=== PATIENT | female | born 1980 | race Caucasian/White ===

== ENCOUNTER 2021-05-23 16:11 | Outpatient (CLI) | payer MEDICAID, SELFPAY ==
--- NOTE | 2021-05-23 16:18 | XR_ITS ---
WS: [id number] Abdomen series: PA CHEST AND 2 VIEWS OF THE ABDOMEN HISTORY: ABDOMINAL PAIN COMPARISON: None available. 6 mm high density nodule in the RIGHT lower lung field this may be calcified granuloma but needs to b e further evaluated. No pneumonia. No free air. Heart is normal size. Surgical sutures are noted at the LEFT upper abdomen and along the medial RIGHT abdomen. There are a few air-fluid levels within the small bowel. XR/XR acute abdomen series [id number] IMPRESSION: 1. Air-fluid levels in the small bowel. Early partial small bowel obstruction versus ileus. Close clinical imaging follow-up recommended. 2. Postsurgical changes in the LEFT upper abdomen and also in the RIGHT abdome n. 3. Indeterminate 6 mm nodule in the RIGHT lung. This may be a granuloma. Recom mend follow-up chest CT for further evaluation.
== END 2021-05-23 16:12 | disposition home or self-care (01) ==
PROVIDERS: Visit Provider Nurse Practitioner Family
DX: R10.9 Unspecified abdominal pain (principal); R91.1 Solitary pulmonary nodule
CPT/HCPCS: 74022

== ENCOUNTER 2021-06-11 08:21 | Outpatient (CLI) | payer MEDICAID, SELFPAY ==
--- NOTE | 2021-06-11 08:33 | CT_ITS ---
WS: [id number] CT ABDOMEN WITHOUT CONTRAST HISTORY: Transient periumbilical pain with nausea and vomiting. Prior gastric bypass. Contiguous single phase 5 mm axial imaging performed to the abdomen. Oral contrast has been provided. Coronal and sagittal reformats are submitted. All CT scans at [facility] use at least one of these dose optimization techniques: automated exposure control; mA and/or kV adjustment per patient size (includes targeted exams where dose is matched to clinical indication); or iterative reconstruct ion. CONTRAST: None DLP: 508.33 mGy-cm. COMPARISON: None available. Lower thorax: Lung bases are clear. Cardiac silhouette is top normal size. Postsurgical changes at th e GE junction and prior gastric bypass. Liver: Normal. No intrahepatic dilatation. Gallbladder: Prior cholecystectomy. No bile duct dilatation. Pancreas: Normal. Spleen: Low-attenuation mass with a maximum diameter of 12 mm in the spleen. Nonspecific. Adrenals: Normal. Right kidney: Normal. Left kidney: Normal. Aorta: Normal. GI tract: Postsurgical changes at the GE junction from prior bypass. No adjacent inflammation. No obs truction is evident. There is an additional distended loop of small bowel in the RIGHT lower quadrant with adjacent surgical sutures. Dilated suggesting this is patulous. There is no obstruction apparen t at this time. No ischemic changes. No adenopathy or free fluid. Abdominal wall: No hernia. Visualized osseous structures: Unremarkable. CT/CT abdomen wo con [id number] IMPRESSION: 1. Status post gastric bypass. 2. Dilated patulous loop of small bowel in the RIGHT lower quadrant. At this t tiara there is no obstruction. The loop is a patulous which may be postsurgical. No prior studies for comparison to evaluate for interval change. 3. No ascites. 4. Prior cholecystectomy. 5. Low-attenuation 12 mm lesion in the spleen. With no history of malignancy t his is probably benign cyst or hemangioma.
[2021-06-11] MEDS: iohexol 300 mg/mL 50 mL Btl PO (08:52)
== END 2021-06-11 08:22 | disposition home or self-care (01) ==
LOC: RAD 08:26
PROVIDERS: Visit Provider Nurse Practitioner Family
DX: R10.84 Generalized abdominal pain (principal); Z98.84 Bariatric surgery status; Z90.49 Acquired absence of other specified parts of digestive tract; D73.89 Other diseases of spleen
CPT/HCPCS: 74150

== ENCOUNTER 2023-01-01 19:35 | Emergency (ER) | payer OTHER, MEDICAID, SELFPAY ==
[2023-01-01 19:52] VITALS: BP 122/79; PULSE 99; RESP 17; TEMP 36.7; O2SAT 97; BMI 28.2
[2023-01-01 21:34] LABS: Basophils # 0.1 10^3/uL (0.0-0.1); Basophils % 0.8 %; Eosinophils # 0.3 10^3/uL (0.0-0.8); Eosinophils % 3.3 %; Lymphocytes # 2.4 10^3/uL (0.8-4.8); Mean Corpuscular HGB Conc 32.9 g/dL (30-55); Mean Corpuscular Hemoglobin 29.9 pg (27-33); Mean Corpuscular Volume 90.9 fl (85-98); Mean Platelet Volume 10.4 fL (7.4-10.4); Monocytes # 0.5 10^3/uL (0.2-0.9); Monocytes % 5.5 %; Neutrophils # 5.95 10^3/uL (1.8-7.7); Neutrophils % 64.1 %; Nucleated Red Blood Cells % 0 %; Platelet Count 253 10^3/cmm (157-399); Red Blood Count 3.41 10^6/uL (3.85-5.65); Red Cell Distribution Width 15.3 % (12.1-15.1); White Blood Count 9.28 10^3/uL (3.29-11.43)
[2023-01-01 21:48] LABS: HCG, Serum Qual Negative (Negative)
[2023-01-01 22:05] LABS: Alanine Aminotransferase 7 U/L (0-33); Alkaline Phosphatase 67 U/L (35-105); Aspartate Amino Transferase 12 U/L (0-32); Blood Urea Nitrogen 13 mg/dL (6-20); Calcium 9.2 mg/dL (8.5-10.5); Carbon Dioxide 28 mmol/L (22-29); Chloride 105 mmol/L (98-107); Globulin 2.2 g/dL (1.3-4.6); Glomerular Filtration Rate 92.2 mL/min (90-130); Glucose 96 mg/dL (65-115); Osmolality Calculated 290 mOsm/kg (285-295); Sodium 140 mmol/L (136-145); Total Bilirubin 0.2 mg/dL (0.15-1.2); Total Protein 6.2 g/dL (6.6-8.7)
--- NOTE | 2023-01-01 23:36 | ED_ITS ---
HPI - GI Bleed General: Chief complaint: GI Bleed Stated complaint: back pain, blood in stool Time Seen by Provider: 01/01/23 23:34 History of Present Illness: 42-year-old female comes in today with complaints of left lower quadrant abdominal pain radiating to the back and noticing some blood in the stool. Patient appears nontoxic. Patient appears in moderate pain. Patient has a history of renal calculi, gastric bypass surgery, gallbladder surgery. Gastric bypass was several years ago. Patient reports no fever or chills. Patient had used Tylenol and ibuprofen to help with pain. Associated symptoms: Reports abdominal pain and fever(s); Denies nausea or vomiting Review of Systems General: Reports: 10 or more systems reviewed and unremarkable except in HPI and below Const: Reports: fever(s) Resp: Denies: dyspnea GI: Reports: abdominal pain and hematochezia; Denies: nausea, vomiting, diarrhea or constipation : Reports: dysuria Musc: Reports: back pain Physical Exam Const: COMMON NORMALS: alert HENMT: COMMON NORMALS: normocephalic HEAD & SCALP: normocephalic THROAT: posterior oropharynx normal Neck/C-Spine: COMMON NORMALS: full ROM Resp: COMMON NORMALS: normal respiratory effort and clear to auscultation bilaterally AUSCULTATION: clear to auscultation bilaterally Cardio: COMMON NORMALS: regular rate and regular rhythm RATE: regular rate RHYTHM: regular rhythm GI: COMMON NORMALS: Soft to palpation PALPATION: Yes Soft to palpation and Yes Tenderness to palpation present (GI) Details: LLQ : COMMON NORMALS: Yes no CVA tenderness BLADDER/KIDNEY EXAM: Yes no CVA tenderness Back/Pelvis: COMMON NORMALS: no CVA tenderness and thoracic and lumbar spine normal to inspection Extremity: COMMON NORMALS: no pedal edema Neuro: SENSORIUM/ORIENTATION: Yes alert Skin: COMMON NORMALS: turgor normal GENERAL SKIN EXAM: turgor normal Course Vital Signs: Vital signs: Vital Signs Temperature 98.0 F 01/01/23 19:52 Pulse Rate 70 01/02/23 01:09 Respiratory Rate 18 01/02/23 01:09 Blood Pressure 134/88 01/02/23 01:09 Pulse Oximetry 100 01/02/23 01:09 Oxygen Delivery Me thod Room Air 01/02/23 01:09 MDM - GI Bleed Medical Decision Making 42-year-old female comes in today for complaints of left lower quadrant abdominal pain radiating to the back, and blood in the stool. Patient appears nontoxic. Abdomen soft with some tenderness in the left lower quadrant. Bowel sounds are present. Skin is warm and dry and turgor is normal. Vital signs are normal. Differential diagnosis includes not limited to diverticulitis, hemorrhoid, colon polyp, renal calculi, carcinoma. Hemoglobin is at 10. CMP was unremarkable. White blood cell count is 9.2. CT shows some inflammation in the efferent loop and proximal jejunum with status post gastric bypass. No signs of perforation is noted. Patient did admit to using NSAIDs for pain relief. I recommended cessation of all NSAIDs and aspirin containing products. We will put patient on pantoprazole 40 mg twice a day and have her follow-up with surgeon or cement block maker for further evaluation with endoscopy. Patient reported understanding of care plan and need for follow-up or return to the ER. Lab Data 01/01/23 20:51 01/01/23 20:51 Radiology Impressions Abdomen/Pelvis CT 01/01/23 23:38 IMPRESSION: Status post gastric bypass with inflammation of the efferent loop/proximal jejunum. Laboratory Results WBC 9.28 10^3/uL (3.29-11.43) 01/01/23 20:51 RBC 3.41 10^6/uL (3.85-5.65) L 01/01/23 20:51 Hgb 10.20 g/dL (11.27-16.99) L 01/01/23 20:51 Hct 31.0 % (36-47) L 01/01/23 20:51 MCV 90.9 fl (85-98) 01/01/23 20:51 MCH 29.9 pg (27-33) 01/01/23 20:51 MCHC 32.9 g/dL (30-55) 01/01/23 20:51 RDW 15.3 % (12.1-15.1) H 01/01/23 20:51 Plt Count 253 10^3/cmm (157-399) 01/01/23 20:51 MPV 10.4 fL (7.4-10.4) 01/01/23 20:51 Neut % (Auto) 64.1 % 01/01/23 20:51 Lymph % (Auto) 26.0 % 01/01/23 20:51 [place] % (Auto) 5.5 % 01/01/23 20:51 Eos % (Auto) 3.3 % 01/01/23 20:51 Baso % (Auto) 0.8 % 01/01/23 20:51 Neut # (Auto) 5.95 10^3/uL (1.8-7.7) 01/01/23 20:51 Lymph # (Auto) 2.4 10^3/uL (0.8-4.8) 01/01/23 20:51 [place] # (Auto) 0.5 10^3/uL (0.2-0.9) 01/01/23 20:51 Eos # (Auto) 0.3 10^3/uL (0.0-0.8) 01/01/23 20:51 Baso # (Auto) 0.1 10^3/uL (0.0-0.1) 01/01/23 20:51 Nucleated RBC % (auto) 0 % 01/01/23 20:51 Nucleated RBCs # 0.0 /100WBC 01/01/23 20:51 Sodium 140 mmol/L (136-145) 01/01/23 20:51 Potassium 4.0 mmol/L (3.5-5.1) 01/01/23 20:51 Chloride 105 mmol/L (98-107) 01/01/23 20:51 Carbon Dioxide 28 mmol/L (22-29) 01/01/23 20:51 Anion Gap 11.0 (5-19) 01/01/23 20:51 BUN 13 mg/dL (6-20) 01/01/23 20:51 Creatinine 0.7 mg/dL (0.5-0.9) 01/01/23 20:51 GFR Calculation 92.2 mL/min (90-130) 01/01/23 20:51 Glucose 96 mg/dL (65-115) 01/01/23 20:51 Calculated Osmolality 290 mOsm/kg (285-295) 01/01/23 20:51 Calcium 9.2 mg/dL (8.5-10.5) 01/01/23 20:51 Total Bilirubin 0.2 mg/dL (0.15-1.2) 01/01/23 20:51 AST 12 U/L (0-32) 01/01/23 20:51 ALT 7 U/L (0-33) 01/01/23 20:51 Alkaline Phosphatase 67 U/L (35-105) 01/01/23 20:51 Total Protein 6.2 g/dL (6.6-8.7) L 01/01/23 20:51 Albumin 4.0 g/dL (3.5-5.2) 01/01/23 20:51 Globulin 2.2 g/dL (1.3-4.6) 01/01/23 20:51 HCG, Qual Negative (Negative) 01/01/23 20:51 Discharge Plan Discharge Patient Disposition: Home Clinical Impression: Jejunitis, Blood in stool Condition: Stable Prescriptions: New pantoprazole 40 mg tablet,delayed release (DR/EC) 40 mg PO BID 14 Days Qty: 28 0RF hydrocodone-acetaminophen 5-325 mg tablet 1 tab PO Q8H PRN (Reason: pain (scale score 7-10)) Qty: 10 0RF ondansetron 4 mg tablet,disintegrating 4 mg PO Q8H PRN (Reason: nausea and vomiting) Qty: 10 0RF Discharge Orders: Discharge ED (Routine); Ordered 01/02/23 Ordered By: Jason Caballero Discharge Diet: Advance as tolerated Discharge Activity: Increase activity as tolerated Patient Instructions: Gastrointestinal Bleeding (ED) Activity Restrictions/Additional Instructions: Do not use ibuprofen or any other NSAIDs such as aspirin, naproxen or other products as this may cause more bleeding. As this may cause more bleeding. Take pantoprazole 40 mg twice a day for the next 2 weeks. as needed for nausea. Use acetaminophen as needed for pain. Use hydrocodone for severe pain. Follow- up with primary care as needed. Case management will contact you regarding follow-up appointment with surgeon for endoscopy procedure. Coding Level of Care Code ED [employer] for Joseline Martinez
--- NOTE | 2023-01-01 23:38 | CTR_ITS ---
PROCEDURE INFORMATION: Exam: CT Abdomen And Pelvis With Contrast Exam date and time: 01/02/2023 12:16 AM Age: 42 years old Clinical indication: Abdominal pain; Localized; Left lower quadrant (llq); Prior surgery; Surgery date: 6+ months; Surgery type: Gastric bypass. Gb. Csection x3; Patient HX: Llq pain with tarry stools. ; Additional info: Llq pain, blood in stool TECHNIQUE: Imaging protocol: Computed tomography of the abdomen and pelvis with contrast. Radiation optimization: All CT scans at this facility use at least one of these dose optimization techniques: automated exposure control; mA and/or kV adjustment per patient size (includes targeted exams where dose is matched to clinical indication); or iterative reconstruction. Contrast material: OMNI 350; Contrast volume: 100 ml; Contrast route: INTRAVENOUS (IV); REPORTING DATA: Count of CT and Cardiac NM exams in prior 12 months: This patient has received 0 known CTs and 0 known cardiac nuclear medicine studies in the 12 months prior to the current study. COMPARISON: CT abdomen con [id number] 06/11/2021 9:20 AM RADIATION DOSE METRICS: Total DLP (mGy-cm): 705.39 FINDINGS: Lungs: Minimal bilateral dependent atelectasis noted. No consolidation. Liver: Normal. No mass. Gallbladder and bile ducts: The gallbladder has been surgically removed. Pancreas: Normal. No ductal dilation. Spleen: There is a 1.7 cm hypodense lesion in the spleen, likely representing cysts or hemangioma. Enlarged spleen measuring 25 cm in CC dimension. No mass identified. Adrenal glands: Normal. No mass. Kidneys and ureters: Symmetric enhancement of the kidneys. Subcentimeter foci of decreased attenuation in the left kidney are too small to characterize. No hydronephrosis or nephrolithiasis. Stomach and bowel: The patient is status post Cong-en-Y gastric bypass. Appendix: No evidence of appendicitis. Intraperitoneal space: See Lymph nodes finding. Vasculature: Unremarkable. No abdominal aortic aneurysm. Lymph nodes: There is wall thickening of the proximal jejunum/efferent loop, just distal to the gastrojejunal anastomosis, in association with mild haziness of the surrounding fat and small adjacent reactive mediastinal lymph nodes. No free air or fluid collection to suggest perforation. Mild secondary inflammatory changes along the greater curvature of the adjacent excluded gastric cavity noted. Urinary bladder: Unremarkable as visualized. Reproductive: The uterus is surgically absent. Bones/joints: Unremarkable. No acute fracture. Soft tissues: Unremarkable. CT/CT abdomen pelvis w con* [id number] IMPRESSION: Status post gastric bypass with inflammation of the efferent loop/proximal jejunum.
[2023-01-01 23:52] VITALS: RESP 18
[2023-01-01] MEDS: ondansetron 2 mg/ML SDV 2 mL 4 MG IVP (23:52)
[2023-01-01] MEDS: morphine 4 mg/mL SDV 1 mL IVP (23:52)
[2023-01-01] MEDS: pantoprazole 40 mg SDV 80 MG IVP (23:52)
[2023-01-01] MEDS: lactated ringers 1,000 ML 999 ML IV (23:52)
[2023-01-01 23:59] VITALS: BP 144/94; PULSE 77; O2SAT 97
[2023-01-02] MEDS: iohexol 350 mg/mL 500 mL Btl (per mL) IV (00:17)
[2023-01-02 00:30] VITALS: BP 138/90; PULSE 71; O2SAT 97
[2023-01-02 00:40] VITALS: BP 131/93; BP 148/97; BP 155/102; PULSE 72; PULSE 75
[2023-01-02 01:09] VITALS: BP 134/88; PULSE 70; RESP 18; O2SAT 100
[2023-01-02 01:28] VITALS: BP 134/88; PULSE 78; RESP 18; O2SAT 100
--- NOTE | 2023-01-02 10:41 | DCPLANNER ---
Addendum entered by Cathie Sánchez 01/10/23 11:03: Patient did attend appointment scheduled with general surgery Addendum entered by Cathie Sánchez 01/03/23 12:36: Patient has a follow up appointment scheduled for Saturday, January 07, 2023 at 9:[address] Mulligan at general surgery. Original Note: manager lvn had message to schedule a follow up appointment for patient with general surgery. manager lvn sent patients information to the front office staff at general surgery. Patients information will be printed and reviewed. Clinic will call patient with appointment information.
--- NOTE | 2023-01-03 12:33 | DCPLANNER ---
manager flight called patient due to no primary care physician - no answer at this time.
--- NOTE | 2023-01-15 11:43 | DCPLANNER ---
manager pacu called patient due to no primary care physician - unable to speak with patient at this time, a voicemail was left for patient to return case loader operator phone call.
== END 2023-01-02 01:22 | disposition home or self-care (01) ==
PROVIDERS: Emergency Provider Nurse Practitioner Family
DX: K52.9 Noninfective gastroenteritis and colitis, unspecified (principal); K92.1 Melena; Z98.84 Bariatric surgery status
CPT/HCPCS: 36415; 74177; 80053; 84703; 85025; 96361; 96374; 96375; 99285; C9113; J2270; J2405; J7120; Q9967

== ENCOUNTER 2023-02-20 09:20 | Day surgery (SDC) | payer OTHER, MEDICAID, SELFPAY ==
[2023-02-19 10:11] VITALS: BMI 43.5
[2023-02-20] VITALS (9 sets, daily range): BP systolic 98–126; BP diastolic 61–88; PULSE 63–78; RESP 15–18; TEMP 36.1–36.6; O2SAT 95–100
[2023-02-20] MEDS: sodium chloride 0.9% 1,000 ML 30 ML IV (09:51)
[2023-02-20] MEDS: HYDROmorphone 1 mg/mL INJ 1 mL 0.5 MG IVP ×2 (10:32→13:08)
--- NOTE | 2023-02-20 10:39 | ANES.PREANE2 ---
Pre-Anesthetic Assessment Height/Weight: Height 1.68 m Weight 122.47 kg Temp Pulse Resp BP Pulse Ox O2 Del Method 98 F 72 18 122/67 100 Room Air 02/20/23 09:41 02/20/23 09:41 02/20/23 09:41 02/20/23 09:41 02/20/23 09:41 02/20/23 09:41 Operation Date: 02/20/23 10:45 Proposed Procedures p 58617 lap incisional hernia repair with mesh K43.2(Not Applicable) - Gerald Mulligan DO Familial anesthetic complications: none Was Beta Gladys taken within 24 hours: N/A Was Clonidine taken within 24 hours: N/A Last intake: Intake Last Liquid Date 02/19/23 Last Liquid Time 21:00 Last Solid Date 02/19/23 Last Solid Time 20:00 Social Tobacco and No alcohol Exam alert, oriented x 3 and regular rate & rhythm Airway Submandibular: within normal limits Cervical ROM: within normal limits Mallampati: Class II Dentition: full Pulmonary Chronic Obstructive Pulmonary Disease GI Gastroesophageal Reflux Disease Metabolic Morbid Obesity Anesthetic Plan ASA status: 3 Anesthesia: General Medications/Allergies Home Medications Medication Instructions Recorded Confirmed Last Taken Type hydrocodone 5 mg-acetaminophen 325 1 tab PO Q8H PRN pain (scale score 01/02/23 02/20/23 02/19/23 Rx mg tablet 7-10) #10 tabs ondansetron 4 mg disintegrating 4 mg PO Q8H PRN nausea and 01/02/23 02/20/23 02/19/23 Rx tablet vomiting #10 tabs pantoprazole 40 mg tablet,delayed 40 mg PO BID 6 weeks #84 tabs 01/07/23 02/20/23 02/19/23 Rx release Allergies Allergy/AdvReac Type Severity Reaction Status Date / Time No Known Allergies Allergy Verified 02/19/23 10:11 Current Medications Generic Name Dose Route Start Last Admin Trade Name Freq PRN Reason Stop Dose Admin Hydromorphone HCl 0.5 mg 02/20/23 09:32 02/20/23 10:32 Hydromorphone 1 Mg/Ml Inj 1 Ml IVP 0.5 mg ONCE PRN Administration For preop pain/anxiety Sodium Chloride 1,000 mls @ 30 mls/hr 02/20/23 09:45 02/20/23 09:51 Sodium Chloride 0.9% IV 02/21/23 09:44 30 mls/hr .Q24H YODIT Administration PFSH Anesthesia Surgical History (Updated 01/07/23 @ 10:31 by Gerald Mulligan DO) History of back surgery did not have History of weight loss surgery Hx laparoscopic cholecystectomy Hx of section Hx of hysterectomy Social History Smoking and tobacco/nicotine status: current some day tobacco/nicotine user Alcohol intake: never Data Anesthesia Cardiac Studies: No Data to Display
--- NOTE | 2023-02-20 11:00 | P.HP_ITS ---
Providers/Chief Complaint Chief Complaint: K43.2 History of Present Illness Jocelynn Parson is a 42 year old female Review of Systems General: Reports: 10 or more systems reviewed and unremarkable except in HPI and below Medications/Allergies Home Medications Medication Instructions Recorded Confirmed Last Taken Type hydrocodone 5 mg-acetaminophen 325 1 tab PO Q8H PRN pain (scale score 01/02/23 02/20/23 02/19/23 Rx mg tablet 7-10) #10 tabs ondansetron 4 mg disintegrating 4 mg PO Q8H PRN nausea and 01/02/23 02/20/23 02/19/23 Rx tablet vomiting #10 tabs pantoprazole 40 mg tablet,delayed 40 mg PO BID 6 weeks #84 tabs 01/07/23 02/20/23 02/19/23 Rx release Allergies Allergy/AdvReac Type Severity Reaction Status Date / Time No Known Allergies Allergy Verified 02/19/23 10:11 PFSH Acute PFSH: Surgical History History of back surgery did not have History of weight loss surgery Hx laparoscopic cholecystectomy Hx of section Hx of hysterectomy Social History Smoking and tobacco/nicotine status: current some day tobacco/nicotine user Alcohol intake: never Vitals/I&O/Wt Last Vital Signs Temp 98 F 02/20/23 09:41 Pulse 72 02/20/23 09:41 Resp 18 02/20/23 09:41 BP 122/67 02/20/23 09:41 Pulse Ox 100 02/20/23 09:41 O2 Del Method Room Air 02/20/23 09:41 Weight last 48 hrs Weight 270 lb A&P Assessment and plan (1) Incisional hernia: Plan Laparoscopic incisional hernia repair with mesh Attestations Medical Necessity Statement*: home Coding Level of Care Code Acute Code for [facility] Diagnoses Incisional hernia K43.2
[2023-02-20] MEDS: ceFAZolin 2,000 MG in sodium chloride 0.9% (plus) 50 ML 100 MG IV (12:13)
[2023-02-20] MEDS: lidocaine-epi 2% 20 mL INJ INJECTION (12:40)
--- NOTE | 2023-02-20 12:53 | P.OP_ITS ---
Operative Report Date of procedure: February 20, 2023 Pre-op diagnosis: Incisional hernia Post-op diagnosis: same Procedure done: Laparoscopic repair of incisional hernia with mesh Implants: 11 cm round Ventralight mesh Specimens removed/disposition: Hernia sac Surgeon: Gerald Mulligan DO Anesthesia: General Estimated blood loss (mL): 5 Complications: None apparent Brief History: This very pleasant 42-year-old female who presented my office with an incisional hernia from a previous laparoscopic cholecystectomy. She desired repair. The risk and benefits were explained and documented. Procedure: Patient was wheeled into the operative room and placed on the OR table in a supine position. Abdomen was inspected prepped and draped in usual sterile fashion. Time-out was performed and all present were in agreement. A 15 blade scalp was used to make a 5 millimeter incision left upper quadrant. A Veress needle was placed into the incision and intra-abdominal insufflation was brought to 15 millimeters of mercury. A 12 millimeter trocar was placed into the left lower quadrant. The energy but device was then used to cut out the hernia sac. The hernia defect measured 1 cm in greatest diameter. An 11 cm ventral light mesh was placed into the abdomen and brought up through the umbilicus using an the Magnus-Letitia. The mesh was then tacked in place in a double crown fashion. The skeleton of the mesh was removed via the left lower quadrant. The hernia sac was then removed from the abdomen via the left lower quadrant. The left lower quadrant port site was closed with an 0 Vicryl suture in a Magnus- Letitia in a [id number] fashion. Incisions were closed with 4 O Vicryl in a subcuticular interrupted fashion. Skin glue was applied. Patient tolerated the procedure well.
[2023-02-20] MEDS: HYDROcodone-acetaminophen 10-325 mg Tablet 1 TAB PO (13:52)
--- NOTE | 2023-02-20 14:11 | ANE.PACU2 ---
Inpatient post-anesthesia follow up: Airway intact: Yes Vital signs: Temperature 97.3 F Pulse Rate 78 Respiratory Rate 18 Blood Pressure 116/88 Pulse Oximetry 100 Oxygen Delivery Me thod Room Air Oxygen Flow Rate Fraction of Inspir ed Oxygen Hydration adequate: Yes Nausea and vomiting: No Pain level: 3 Mental status: Baseline
== END 2023-02-20 14:23 | disposition home or self-care (01) ==
PROVIDERS: Visit Provider Surgery
PROC: 0WQF4ZZ Repair Abdominal Wall, Percutaneous Endoscopic Approach (ICD-10-PCS; CPT 49591; principal; 2023-02-20 10:35)
DX: K43.2 Incisional hernia without obstruction or gangrene (principal); J44.9 Chronic obstructive pulmonary disease, unspecified; K21.9 Gastro-esophageal reflux disease without esophagitis; E66.01 Morbid (severe) obesity due to excess calories; Z68.41 Body mass index [BMI] 40.0-44.9, adult; F17.210 Nicotine dependence, cigarettes, uncomplicated
CPT/HCPCS: 49591; 88302; C1781; J0690; J1100; J1170; J2250; J2405; J2704; J2710; J3010; J3490; J7030

== ENCOUNTER 2023-02-28 07:35 | Day surgery (SDC) | payer OTHER, MEDICAID, SELFPAY ==
[2023-02-28 07:44] VITALS: BP 120/89; PULSE 77; RESP 16; TEMP 36.2; O2SAT 100; BMI 27.4
--- NOTE | 2023-02-28 07:53 | ANES.PREANE2 ---
Pre-Anesthetic Assessment Height/Weight: Height 1.68 m Weight 77.111 kg Temp Pulse Resp BP Pulse Ox O2 Del Method 97.2 F L 77 16 120/89 100 Room Air 02/28/23 07:44 02/28/23 07:44 02/28/23 07:44 02/28/23 07:44 02/28/23 07:44 02/28/23 07:44 Operation Date: 02/28/23 08:30 Proposed Procedures p 19406 egd [id number] colon K21.1,K21.9(Not Applicable) - Gerald Mulligan DO s Colonoscopy(Not Applicable) - Gerald Mulligan DO Familial anesthetic complications: none Was Beta Gladys taken within 24 hours: N/A Was Clonidine taken within 24 hours: N/A Last intake: Intake Last Liquid Date 02/27/23 Last Liquid Time 22:00 Last Solid Date 02/27/23 Last Solid Time 08:00 Social No alcohol and No tobacco Exam alert, oriented x 3, clear to auscultation bilaterally and regular rate & rhythm Airway Mallampati: Class II Dentition: full GI Gastroesophageal Reflux Disease Anesthetic Plan ASA status: 2 Anesthesia: MAC Risk of > 500 ml blood loss (7ml/kg in children): No Medications/Allergies Home Medications Medication Instructions Recorded Confirmed Last Taken Type ondansetron 4 mg disintegrating 4 mg PO Q8H PRN nausea and 01/02/23 02/28/23 02/26/23 Rx tablet vomiting #10 tabs pantoprazole 40 mg tablet,delayed 40 mg PO BID 6 weeks #84 tabs 01/07/23 02/28/23 02/26/23 Rx release docusate sodium 100 mg capsule 100 mg PO BID #14 caps 02/20/23 02/28/23 02/27/23 Rx (Colace) hydrocodone 10 mg-acetaminophen 1 tab PO Q6H PRN pain #20 tabs 02/20/23 02/28/23 02/28/23 06:00 Rx 325 mg tablet Allergies Allergy/AdvReac Type Severity Reaction Status Date / Time No Known Allergies Allergy Verified 02/26/23 14:12 PFSH Anesthesia Surgical History History of back surgery did not have History of weight loss surgery Hx laparoscopic cholecystectomy Hx of section Hx of hysterectomy Social History Smoking and tobacco/nicotine status: current some day tobacco/nicotine user Alcohol intake: never Data Anesthesia Cardiac Studies: No Data to Display
[2023-02-28] MEDS: sodium chloride 0.9% 1,000 ML 30 ML IV (07:55)
--- NOTE | 2023-02-28 08:53 | PM.HP ---
Providers/Chief Complaint Chief Complaint: K21.1, K21.9 History of Present Illness Jocelynn Parson is a 42 year old female Review of Systems General: Reports: 10 or more systems reviewed and unremarkable except in HPI and below Medications/Allergies Home Medications Medication Instructions Recorded Confirmed Last Taken Type ondansetron 4 mg disintegrating 4 mg PO Q8H PRN nausea and 01/02/23 02/28/23 02/26/23 Rx tablet vomiting #10 tabs pantoprazole 40 mg tablet,delayed 40 mg PO BID 6 weeks #84 tabs 01/07/23 02/28/23 02/26/23 Rx release docusate sodium 100 mg capsule 100 mg PO BID #14 caps 02/20/23 02/28/23 02/27/23 Rx (Colace) hydrocodone 10 mg-acetaminophen 1 tab PO Q6H PRN pain #20 tabs 02/20/23 02/28/23 02/28/23 06:00 Rx 325 mg tablet Allergies Allergy/AdvReac Type Severity Reaction Status Date / Time No Known Allergies Allergy Verified 02/26/23 14:12 PFSH Acute PFSH: Surgical History History of back surgery did not have History of weight loss surgery Hx laparoscopic cholecystectomy Hx of section Hx of hysterectomy Social History Smoking and tobacco/nicotine status: current some day tobacco/nicotine user Alcohol intake: never Vitals/I&O/Wt Last Vital Signs Temp 97.2 F L 02/28/23 07:44 Pulse 77 02/28/23 07:44 Resp 16 02/28/23 07:44 BP 120/89 02/28/23 07:44 Pulse Ox 100 02/28/23 07:44 O2 Del Method Room Air 02/28/23 07:44 Weight last 48 hrs Weight 170 lb A&P Assessment and plan (1) GERD (gastroesophageal reflux disease): (2) Hematochezia: Plan EGD and colonoscopy Attestations Medical Necessity Statement*: Home Coding Level of Care Code Acute Code for [facility] Diagnoses GERD (gastroesophageal reflux disease) K21.9 Hematochezia K92.1
[2023-02-28 09:16] VITALS: BP 107/65; PULSE 66; RESP 16; TEMP 36.1; O2SAT 100
[2023-02-28 09:30] VITALS: BP 121/78; PULSE 66; RESP 16; O2SAT 100
--- NOTE | 2023-02-28 09:56 | ANE.PACU2 ---
Inpatient post-anesthesia follow up: Airway intact: Yes Vital signs: Temperature 97 F Pulse Rate 66 Respiratory Rate 16 Blood Pressure 121/78 Pulse Oximetry 100 Oxygen Delivery Me thod Room Air Oxygen Flow Rate Fraction of Inspir ed Oxygen Hydration adequate: Yes Nausea and vomiting: No Pain level: 1 Mental status: Baseline
== END 2023-02-28 09:45 | disposition home or self-care (01) ==
PROVIDERS: Visit Provider Surgery
PROC: 0DJ08ZZ Inspection of Upper Intestinal Tract, Via Natural or Artificial Opening Endoscopic (ICD-10-PCS; CPT 43235; principal; 2023-02-28 08:30)
PROC: 0DJD8ZZ Inspection of Lower Intestinal Tract, Via Natural or Artificial Opening Endoscopic (ICD-10-PCS; CPT 45378; 2023-02-28 08:30)
DX: K21.9 Gastro-esophageal reflux disease without esophagitis (principal); K92.1 Melena; Z72.0 Tobacco use; K26.9 Duodenal ulcer, unspecified as acute or chronic, without hemorrhage or perforation
CPT/HCPCS: 43239; 45378; 88305; 88312; J2704; J3010; J7030

== ENCOUNTER 2024-06-28 08:54 | Outpatient (CLI) | payer OTHER, BC, MEDICAID, SELFPAY ==
--- NOTE | 2024-06-28 08:40 | MM_ITS ---
WS: [id number] VIEWS: MLO and CC views both breasts. 3D digital tomosynthesis is also included in this exam. Baseline study. Findings: There are scattered areas of fibroglandular density. No sign of suspicious mass, tumor calcification or architectural distortion. MM/MM scr BI tomosynthesis [id number] Impression: BI-RADS: 2 - Benign FOLLOW-UP: 1 Year Follow-up This mammogram was also analyzed by the Computer Aided Detection System R2 Imag e Senior Abap Developer.
== END 2024-06-28 08:55 | disposition home or self-care (01) ==
PROVIDERS: Visit Provider Nurse Practitioner Adult Health
DX: Z12.31 Encounter for screening mammogram for malignant neoplasm of breast (principal); R92.323 Mammographic fibroglandular density, bilateral breasts
CPT/HCPCS: 77063; 77067

== ENCOUNTER 2024-07-05 12:20 | Emergency (ER) | payer OTHER, BC, MEDICAID, SELFPAY ==
[2024-07-05 12:26] VITALS: BP 113/80; PULSE 98; TEMP 36.7; O2SAT 98; BMI 35.9
[2024-07-05 14:30] LABS: Basophils # 0.1 10^3/uL (0.0-0.1); Basophils % 0.9 %; Eosinophils # 0.2 10^3/uL (0.0-0.8); Eosinophils % 1.8 %; Hematocrit 37.3 % (36-47); Lymphocytes # 2.7 10^3/uL (0.8-4.8); Lymphocytes % 27.4 %; Mean Corpuscular HGB Conc 31.4 g/dL (30-55); Mean Corpuscular Hemoglobin 26.9 pg (27-33); Mean Corpuscular Volume 85.7 fl (85-98); Mean Platelet Volume 9.2 fL (7.4-10.4); Monocytes # 0.5 10^3/uL (0.2-0.9); Monocytes % 5.1 %; Neutrophils # 6.28 10^3/uL (1.8-7.7); Neutrophils % 64.5 %; Nucleated Red Blood Cells % 0 %; Platelet Count 420 10^3/cmm (157-399); Red Blood Count 4.35 10^6/uL (3.85-5.65); Red Cell Distribution Width 17.2 % (12.1-15.1); White Blood Count 9.75 10^3/uL (3.29-11.43)
[2024-07-05 14:44] LABS: Bilirubin Urine 1+ (Negative); Blood Urine Negative (Negative); Glucose Urine UA Negative (Normal); Ketones Urine Trace (Negative); Leukocyte Esterase Urine Negative (Negative); Nitrate Urine Negative (Negative); Protein Urine Trace (Negative); Urine Appearance Turbid (CLEAR); Urine Color Dark Yellow (Yellow); pH Urine 5.5 (5-7)
[2024-07-05 14:49] LABS: Alanine Aminotransferase 12 U/L (0-33); Alkaline Phosphatase 111 U/L (35-105); Anion Gap 18.1 (5-19); Aspartate Amino Transferase 21 U/L (0-32); Blood Urea Nitrogen 9 mg/dL (6-20); Calcium 9.3 mg/dL (8.5-10.5); Carbon Dioxide 22 mmol/L (22-29); Chloride 104 mmol/L (98-107); Creatinine Clr Calc Pharmacy 125.5582; Globulin 3.7 g/dL (1.3-4.6); Glomerular Filtration Rate 91.8 mL/min (90-130); Glucose 95 mg/dL (65-115); Lipase 31 U/L (13-60); Osmolality Calculated 288 mOsm/kg (285-295); Potassium 4.1 mmol/L (3.5-5.1); Sodium 140 mmol/L (136-145); Total Bilirubin 0.2 mg/dL (0.15-1.2); Total Protein 7.7 g/dL (6.6-8.7)
[2024-07-05 15:01] LABS: HCG, Serum Qual Negative (Negative)
[2024-07-05 15:01] LABS: Specific Gravity, Urine 1.033 (1.005-1.030); UA Manual Slide Review YES; UA Slide Review UA Slide Review Perf
[2024-07-05 15:02] LABS: Add Urine Microscopic? YES; Bacteria Urine TRACE /hpf; Mucus Urine 1+ /hpf; Squamous Epithelial Cell Urine 0-4 /hpf (0-5)
[2024-07-05 15:31] VITALS: BP 153/94; RESP 18; O2SAT 100
--- NOTE | 2024-07-05 15:31 | CTR_ITS ---
PROCEDURE INFORMATION: Exam: CT Abdomen And Pelvis With Contrast Exam date and time: 07/05/2024 4:04 PM Age: 43 years old Clinical indication: Abdominal pain; Generalized; Prior surgery; Surgery date: 6+ months; Surgery type: 3 csection, gb, gastric bypass, hernia, hysterectomy; Additional info: Abd pain TECHNIQUE: Imaging protocol: Computed tomography of the abdomen and pelvis with contrast. Axial, coronal and sagittal reformatted images were created and reviewed. Radiation optimization: All CT scans at this facility use at least one of these dose optimization techniques: automated exposure control; mA and/or kV adjustment per patient size (includes targeted exams where dose is matched to clinical indication); or iterative reconstruction. Contrast material: OMNI 350; Contrast volume: 100 ml; Contrast route: INTRAVENOUS (IV); COMPARISON: CT abdomen pelvis w con* [id number] 01/02/2023 12:16 AM RADIATION DOSE METRICS: Total DLP (mGy-cm): 902.13 FINDINGS: Lungs: Linear/discoid stranding and groundglass at the lung bases, likely due to atelectasis and/or scarring. Liver: Mild hepatomegaly. Gallbladder and biliary ducts: Status post cholecystectomy. No biliary ductal dilatation. Pancreas: Unremarkable. Spleen: Unchanged 1.9 cm splenic cyst. Adrenal glands: Normal. No mass. Kidneys and ureters: Subcentimeter low-density renal lesions bilaterally, measuring up to 6 mm on the left, too small to characterize. No radiodense calculi. No hydronephrosis. Stomach and bowel: Status post gastric bypass surgery. Subtle bowel wall thickening and edema at the gastrojejunostomy site. No obstruction. No pneumatosis. Appendix: Normal. Intraperitoneal space: No free fluid. No organized fluid collection. No free air. Vasculature: Minimal atherosclerotic disease. No aneurysm or dissection. Lymph nodes: Small mesenteric lymph nodes, nonspecific in appearance. No pathologically enlarged lymph nodes. Urinary bladder: Unremarkable as visualized. Reproductive: Status post hysterectomy. Bones/joints: No acute osseous abnormality. Mild degenerative changes. Soft tissues: Unremarkable. CT/CT abdomen pelvis w con* [id number] IMPRESSION: 1. Status post gastric bypass surgery with mild nonspecific inflammation at the gastrojejunostomy site. 2. Additional findings, as above. COMMENTS: Consistent with the [employer]'s Incidental Findings Committee white paper (J Am Sangeetha Radiol 2018): Any incidental renal lesion less than 1 cm or classified as too small to characterize, or any incidental cystic renal lesion characterized as simple-appearing, is likely benign. No follow-up imaging is recommended for these lesions per consensus recommendations based on imaging criteria.
--- NOTE | 2024-07-05 15:44 | ED_ITS ---
HPI - Abdominal Pain 2 General: Chief Complaint: Abdominal Pain Stated Complaint: abd pain, diarrhea Time Seen by Provider: 07/05/24 14:44 Source: patient Mode of arrival: ambulatory Limitations: no limitations History of Present Illness: 43-year-old female states that last 3 da ys she been having diffuse abdominal cramping states she is also been having nausea vomiting and diarrhea states that she has not been able to tolerate much p.o. She has had multiple abdominal surgery in the past she denies her pain being severe she rates it a 2 out of 10 she denies any worse improved factors. Associated Symptoms: Reports diarrhea, nausea and vomiting; Denies chills and fever(s) Related Data Previous Rx's ?Medication ?Instructions ?Recorded ondansetron 4 mg disintegrating 4 mg PO Q6H PRN nausea and 07/05/24 tablet vomiting #14 tabs Allergies Allergy/AdvReac Type Severity Reaction Status Date / Time No Known Allergies Allergy Verified 07/05/24 12:29 Review of Systems 2 Const: Denies: fever(s), chills, body aches or change in appetite ENMT: Denies: throat pain or dental pain Card: Denies: chest pain Resp: Denies: dyspnea GI: Reports: abdominal pain, nausea, vomiting and diarrhea Musc: Denies: neck pain or back pain Skin/Breast: Denies: rash Neuro: Denies: headache(s) PFSH ED 2 PFSH: Surgical History Hx of hernia repair Hx of section History of back surgery did not have Hx laparoscopic cholecystectomy Hx of hysterectomy History of weight loss surgery Social History Smoking and tobacco/nicotine status: current some day tobacco/nicotine user Alcohol intake: never Physical Exam 2 Const: COMMON NORMALS: no acute distress, patient oriented x3 and healthy appearing HENMT: COMMON NORMALS: normocephalic and atraumatic HEAD & SCALP: n ormocephalic and atraumatic Neck/C-Spine: COMMON NORMALS: full ROM and supple Chest: COMMONS NORMALS: normal inspection of the chest Resp: COMMON NORMALS: normal respiratory effort Cardio: COMMON NORMALS: regular rate, regular rhythm and No murmurs present (Cardio) RATE: regular rate RHYTHM: regular rhythm GI: COMMON NORMALS: Normal to inspection, nondistended, normoactive bowel sounds present OTHER: mild tenderness Extremity: COMMON NORMALS: normal to inspection and full ROM Neuro: COMMON NORMALS: patient oriented x3, moves all extremities and no focal motor deficits Psych: COMMON NORMALS: mental status grossly normal, Normal thought process present and cooperative THOUGHT PROCESS: Normal thought process present Skin: COMMON NORMALS: no rashes or lesions noted and no wounds GENERAL SKIN EXAM: no rashes or lesions noted Course 2 Vital Signs: Vital signs: Vital Signs Temperature 98.0 F 07/05/24 12:26 Pulse Rate 98 07/05/24 12:26 Respiratory Rate 20 H 07/05/24 15:58 Blood Pressure 152/97 07/05/24 17:00 Pulse Oximetry 98 07/05/24 17:00 Oxygen Delivery Me thod Room Air 07/05/24 12:26 MDM - Abdominal Pain Medical Decision Making Patient presents here with vomiting diarrhea some abdominal cramping CT showed no acute finding her blood work here is all normal she feels improved we will place her on Zofran at home she is to follow-up with PCP return if worsening she understands agrees to plan. Medical Records I reviewed the patient's medical records. Lab Data I reviewed the patient's lab results. 07/05/24 13:43 07/05/24 13:43 Labs/Radiology: Radiology Impressions Abdomen/Pelvis CT 07/05/24 15:31 IMPRESSION: 1. Status post gastric bypass surgery with mild nonspecific inflammation at the gastrojejunostomy site. 2. Additional findings, as above. COMMENTS: Consistent with the [employer]'s Incidental Findings Committee white paper (J Am Sangeetha Radiol 2018): Any incidental renal lesion less than 1 cm or classified as too small to characterize, or any incidental cystic renal lesion characterized as simple-appearing, is likely benign. No follow-up imaging is recommended for these lesions per consensus recommendations based on imaging criteria. Laboratory Results WBC 9.75 10^3/uL (3.29-11.43) 07/05/24 13:43 RBC 4.35 10^6/uL (3.85-5.65) 07/05/24 13:43 Hgb 11.70 g/dL (11.27-16.99) 07/05/24 13:43 Hct 37.3 % (36-47) 07/05/24 13:43 MCV 85.7 fl (85-98) 07/05/24 13:43 MCH 26.9 pg (27-33) L 07/05/24 13:43 MCHC 31.4 g/dL (30-55) 07/05/24 13:43 RDW 17.2 % (12.1-15.1) H 07/05/24 13:43 Plt Count 420 10^3/cmm (157-399) H 07/05/24 13:43 MPV 9.2 fL (7.4-10.4) 07/05/24 13:43 Neut % (Auto) 64.5 % 07/05/24 13:43 Lymph % (Auto) 27.4 % 07/05/24 13:43 [place] % (Auto) 5.1 % 07/05/24 13:43 Eos % (Auto) 1.8 % 07/05/24 13:43 Baso % (Auto) 0.9 % 07/05/24 13:43 Neut # (Auto) 6.28 10^3/uL (1.8-7.7) 07/05/24 13:43 Lymph # (Auto) 2.7 10^3/uL (0.8-4.8) 07/05/24 13:43 [place] # (Auto) 0.5 10^3/uL (0.2-0.9) 07/05/24 13:43 Eos # (Auto) 0.2 10^3/uL (0.0-0.8) 07/05/24 13:43 Baso # (Auto) 0.1 10^3/uL (0.0-0.1) 07/05/24 13:43 Nucleated RBC % (auto) 0 % 07/05/24 13:43 Nucleated RBCs # 0.0 /100WBC 07/05/24 13:43 Sodium 140 mmol/L (136-145) 07/05/24 13:43 Potassium 4.1 mmol/L (3.5-5.1) 07/05/24 13:43 Chloride 104 mmol/L (98-107) 07/05/24 13:43 Carbon Dioxide 22 mmol/L (22-29) 07/05/24 13:43 Anion Gap 18.1 (5-19) 07/05/24 13:43 BUN 9 mg/dL (6-20) 07/05/24 13:43 Creatinine 0.7 mg/dL (0.5-0.9) 07/05/24 13:43 GFR Calculation 91.8 mL/min (90-130) 07/05/24 13:43 Glucose 95 mg/dL (65-115) 07/05/24 13:43 Calculated Osmolality 288 mOsm/kg (285-295) 07/05/24 13:43 Calcium 9.3 mg/dL (8.5-10.5) 07/05/24 13:43 Total Bilirubin 0.2 mg/dL (0.15-1.2) 07/05/24 13:43 AST 21 U/L (0-32) 07/05/24 13:43 ALT 12 U/L (0-33) 07/05/24 13:43 Alkaline Phosphatase 111 U/L (35-105) H 07/05/24 13:43 Total Protein 7.7 g/dL (6.6-8.7) 07/05/24 13:43 Albumin 4.0 g/dL (3.5-5.2) 07/05/24 13:43 Globulin 3.7 g/dL (1.3-4.6) 07/05/24 13:43 Lipase 31 U/L (13-60) 07/05/24 13:43 HCG, Qual Negative (Negative) 07/05/24 13:43 Urine Color Dark yellow (Yellow) A 07/05/24 13:44 Urine Appearance Turbid (CLEAR) A 07/05/24 13:44 Urine pH 5.5 (5-7) 07/05/24 13:44 Ur Specific [place] 1.033 (1.005-1.030) H 07/05/24 13:44 Urine Protein Trace (Negative) A 07/05/24 13:44 Urine Glucose (UA) Negative (Normal) 07/05/24 13:44 Urine Ketones Trace (Negative) 07/05/24 13:44 Urine Blood Negative (Negative) 07/05/24 13:44 Urine Nitrate Negative (Negative) 07/05/24 13:44 Urine Bilirubin 1+ (Negative) H 07/05/24 13:44 Urine Urobilinogen 1.0 mg/dL (Negative) 07/05/24 13:44 Ur Leukocyte Esterase Negative (Negative) 07/05/24 13:44 Urine RBC None /hpf (0-2) 07/05/24 13:44 Urine WBC None /hpf (0-5) 07/05/24 13:44 Ur Squamous Epith Cells 0-4 /hpf (0-5) H 07/05/24 13:44 Calcium Oxalate Crystal 10-15 /hpf H 07/05/24 13:44 Amorphous Sediment Not Reportable 07/05/24 13:44 Urine Bacteria Trace /hpf (NONE) 07/05/24 13:44 Urine Mucus 1+ /hpf 07/05/24 13:44 All radiology interpretation(s) finalized by discharge Discharge Plan Discharge Patient Disposition: Home Clinical Impression: Abdominal pain Condition: Stable Prescriptions: New ondansetron 4 mg tablet,disintegrating 4 mg PO Q6H PRN (Reason: nausea and vomiting) Qty: 14 0RF Discharge Orders: Discharge ED (Routine); Ordered 07/05/24 Ordered By: Vijay Ambriz Discharge Diet: Advance as tolerated Discharge Activity: Resume usual activity Patient Instructions: Acute Nausea and Vomiting (ED), Abdominal Pain (ED) Print Language: Cymraes Coding Level of Care Code ED Nurse Practical for Joseline Martinez
[2024-07-05 15:58] VITALS: RESP 20
[2024-07-05] MEDS: morphine 4 mg/mL SDV 1 mL IVP (15:58)
[2024-07-05] MEDS: ondansetron 2 mg/ML SDV 2 mL 4 MG IVP (15:59)
[2024-07-05 16:31] VITALS: BP 148/87; O2SAT 97
[2024-07-05 17:00] VITALS: BP 152/97; O2SAT 98
[2024-07-05] MEDS: lidocaine 2% viscous 15 ML, aluminum-mag hydrox-simethicon 30 ML, sucralfate oral liq 1 GM PO (17:23)
[2024-07-05 17:41] VITALS: BP 153/93; PULSE 76; RESP 18; O2SAT 96
== END 2024-07-05 17:43 | disposition home or self-care (01) ==
PROVIDERS: Emergency Provider Emergency Medicine
DX: R10.9 Unspecified abdominal pain (principal); Z72.0 Tobacco use
CPT/HCPCS: 36415; 74177; 80053; 81001; 83690; 84703; 85025; 96374; 96375; 99285; J2270; J2405

== ENCOUNTER 2024-08-21 13:40 | Emergency (ER) | payer OTHER, BC, MEDICAID, SELFPAY ==
[2024-08-21 13:47] VITALS: BP 153/89; PULSE 74; RESP 16; TEMP 37.1; O2SAT 99; BMI 34.7
--- NOTE | 2024-08-21 14:07 | W.ED.EXTPRO ---
HPI - Extremity Problem General: Chief complaint: Extremity Injury, Upper Stated complaint: pain in right hand Time Seen by Provider: 08/21/24 14:07 History of Present Illness: 43-year-old female who presents emergency room with right thumb pain. She says she was doing something and felt a pop in her thumb. She had some swelling initially which is since improved. Says pain has improved quite a bit. But she still having considerable pain right now. No obvious swelling. No deformity. Full range of motion. Other than is limited some by pain. No redness. Neurovascularly intact. Related Data Previous Rx's ?Medication ?Instructions ?Recorded ondansetron 4 mg disintegrating 4 mg PO Q6H PRN nausea and 07/05/24 tablet vomiting #14 tabs diclofenac sodium 50 mg 50 mg PO BID PRN pain #14 tabs 08/21/24 tablet,delayed release Allergies Allergy/AdvReac Type Severity Reaction Status Date / Time No Known Allergies Allergy Verified 08/21/24 13:51 Review of Systems Narrative: Constitutional symptoms: Negative except as documented in HPI. Skin symptoms: Negative except as documented in HPI. Eye symptoms: Negative except as documented in HPI. ENMT symptoms: Negative except as documented in HPI. Respiratory symptoms: Negative except as documented in HPI. Cardiovascular symptoms: Negative except as documented in HPI. Gastrointestinal symptoms: Negative except as documented in HPI. Genitourinary symptoms: Negative except as documented in HPI. Musculoskeletal symptoms: Negative except as documented in HPI. Neurologic symptoms: Negative except as documented in HPI. Psychiatric symptoms: Negative except as documented in HPI. Endocrine symptoms: Negative except as documented in HPI. [facility] ED PFSH: Surgical History Hx of hernia repair Hx of section History of back surgery did not have Hx laparoscopic cholecystectomy Hx of hysterectomy History of weight loss surgery Social History Smoking and tobacco/nicotine status: current some day tobacco/nicotine user Alcohol intake: never Physical Exam Narrative: EXAM NARRATIVE: General: Alert, no acute distress. Skin: warm and dry Head: Normocephalic Neck: Trachea midline Eye: Extraocular movements are intact. Ears, nose, mouth and throat: Oral mucosa moist Respiratory: Respirations are non-labored Musculoskeletal: Right thumb.No obvious swelling. No deformity. Full range of motion. Other than is limited some by pain. No redness. Neurovascularly intact. Neurological: Alert and oriented, No focal neurological deficit observed. Psychiatric: Cooperative, appropriate mood & affect. Course Vital Signs: Vital signs: Vital Signs Temperature 98.8 F 08/21/24 13:47 Pulse Rate 74 08/21/24 13:47 Respiratory Rate 16 08/21/24 13:47 Blood Pressure 153/89 08/21/24 13:47 Pulse Oximetry 99 08/21/24 13:47 Oxygen Delivery Me thod Room Air 08/21/24 13:47 MDM - Extremity (Nontraumatic) Medical Decision Making X-ray of the right hand/thumb: No obvious deformities fractures or dislocations. Films were interpreted by myself the emergency room provider and pending final radiology review. Assessment and plan: Thumb injury ?IM Toradol in the emergency room. - Discharged home - Discussed plan with patient. Answered any questions. - Evaluation and treatment of this problem were appropriate in the emergency setting. XR interpretation done by ED provider, pending radiology final review Discharge Plan Discharge Patient Disposition: Home Clinical Impression: Thumb pain Qualifiers: Laterality: right Qualified Code(s): M79.644 - Pain in right finger(s) Condition: Stable Prescriptions: New diclofenac sodium 50 mg tablet,delayed release (DR/EC) 50 mg PO BID PRN (Reason: pain) Qty: 14 0RF No Action ondansetron 4 mg tablet,disintegrating 4 mg PO Q6H PRN (Reason: nausea and vomiting) Qty: 14 0RF Discharge Orders: Discharge ED (Routine); Ordered 08/21/24 Ordered By: Yahaira Newman Referrals: Leanna Matthew MD [Physician] - 4-7 days (Please call for follow-up appointment with orthopedics or your primary provider if pain persist.) Discharge Diet: Usual diet Discharge Activity: Limit activity as instructed Patient Instructions: Finger Sprain (ED), Opioid Safety, Pain Management Activity Restrictions/Additional Instructions: Thank you for choosing [facility] for your healthcare needs today. Please realize this is an emergency room and that we are providing you with a medical screening exam and this may not be complete and all inclusive of all the testing and or work up that you may need to determine your ailment or severity of your illness. You have been screened and evaluated and felt safe for discharge. Health conditions do change or evolve sometimes and as such it is important that you follow up with your Primary Doctor to be re checked, 3-5 days is a general good time frame for follow up. You are always welcome to return to the ED for re assessment if your symptoms are worsening or you have new concerns Print Language: Tunisian Coding Level of Care Code ED Mallet Cutter for Joseline Martinez
--- NOTE | 2024-08-21 14:08 | XRR_ITS ---
PROCEDURE INFORMATION: Exam: XR Right Hand Exam date and time: 08/21/2024 2:28 PM Age: 43 years old Clinical indication: Hand; Right; RT thumb pain TECHNIQUE: Imaging protocol: Radiologic exam of the right hand. Views: 3 or more views. COMPARISON: No relevant prior studies available. FINDINGS: Bones/joints: Normal. Soft tissues: Normal. XR/XR hand RT min 3V* [id number] IMPRESSION: No acute findings.
[2024-08-21] MEDS: ketorolac 60 mg/2 mL INJ IM (15:02)
[2024-08-21 15:22] VITALS: BP 126/78; PULSE 65; O2SAT 95
== END 2024-08-21 15:23 | disposition home or self-care (01) ==
PROVIDERS: Emergency Provider Emergency Medicine
DX: M79.644 Pain in right finger(s) (principal)
CPT/HCPCS: 73130; 96372; 99284; J1885

== ENCOUNTER → 2024-08-30 14:40 | Outpatient (BNVA) | payer OTHER, BC, MEDICAID, SELFPAY | PROVIDERS: Visit Provider Specialist | DX: M18.11 Unilateral primary osteoarthritis of first carpometacarpal joint, right hand (principal) | CPT/HCPCS: 73130 ==